=== PATIENT | female | born 1995 | race African-American/Black ===

== ENCOUNTER 2017-10-23 18:35 | Emergency (ER) | payer OTHER, BC ==
[~2017-10-23] VITALS: Ht 167.6 cm; Wt 63.6 kg
[~2017-10-23 18:35] MED LIST: MIRALAX255 GM PO; MOTRIN600 MG PO; NAPROXEN500 MG PO; VALIUM2 MG PO
[2017-10-23 19:48] LABS: BASOPHIL (%) 0.7 % (0-1); EOSINOPHIL (%) 14.9 % (0-5); EOSINOPHIL COUNT 0.6 K/uL (0-0.3); HEMATOCRIT 36.3 % (36.0-46.0); HEMOGLOBIN 11.7 G/DL (11.9-15.5); LYMPHOCYTE (%) 38.7 % (15-42); LYMPHOCYTE COUNT 1.6 K/uL (1.0-2.8); MCH 27.9 PG (29.0-34.0); MCHC 32.2 G/DL (30.0-36.0); MCV 86.6 FL (83-99); MONOCYTE COUNT 0.4 K/uL (0-0.8); NEUTROPHIL (%) 36.7 % (45-76); NEUTROPHIL COUNT 1.6 K/uL (1.8-6.4); PLATELET COUNT 252 K/uL (156-360); RBC DIS.WIDTH-CV 13.4 % (11.8-14.6); RBC DIS.WIDTH-SD 42.8 % (39-53); RED BLOOD COUNT 4.19 M/uL (3.80-5.20); WHITE BLOOD COUNT 4.2 K/uL (4.1-10.2)
[2017-10-23 19:56] LABS: ALBUMIN 3.9 g/dL (3.2-4.8); CHLORIDE 107 mEq/L (99-109); POTASSIUM 4.4 mEq/L (3.7-5.4); SODIUM 137 mEq/L (136-147)
[2017-10-23 19:58] LABS: GLUCOSE 82 mg/dL (70-99)
[2017-10-23 20:00] LABS: TOTAL BILIRUBIN 0.4 mg/dL (0.0-1.0)
[2017-10-23 20:01] LABS: SERUM ETHYL ALCOHOL < 10 mg/dL
[2017-10-23 20:02] LABS: ALKALINE PHOSPHATASE 66 IU/L (3-129); GFR ESTIMATE (CALCULATED) > 59 mL/min/
[2017-10-23 20:03] LABS: AST (GOT) 19 IU/L (2-34); UREA NITROGEN (BUN) 12 mg/dL (9-23)
[2017-10-23 20:05] LABS: ALT (GPT) 13 IU/L (3-49)
[2017-10-23 20:10] LABS: QUANTITATIVE HCG < 4.0 MIU/ML
[2017-10-23] MEDS ORDERED: FLEXERIL10 MG PO (21:42)
[2017-10-23] MEDS ORDERED: MOTRIN600 MG PO (21:42)
[2017-10-23 22:10] VITALS: BP 114/88
== END 2017-10-23 22:52 | disposition home or self-care (01) ==
LOC: EME 18:35
PROVIDERS: Emergency Medicine
DX: S30.0XXA Contusion of lower back and pelvis, initial encounter (principal); S06.0X0A Concussion without loss of consciousness, initial encounter; V49.40XA Driver injured in collision with unspecified motor vehicles in traffic accident, initial encounter; Y92.410 Unspecified street and highway as the place of occurrence of the external cause; Z88.8 Allergy status to other drugs, medicaments and biological substances
CPT/HCPCS: 70450; 72125; 72132; 74177; 80053; 84702; 85025; 99281; 99284; G0480; J3010; J7030

== ENCOUNTER 2018-05-02 16:41 | Emergency (ER) | payer OTHER ==
[~2018-05-02] VITALS: Ht 162.6 cm; Wt 71.8 kg
[~2018-05-02 16:41] MED LIST changes: +FLEXERIL10 MG PO
[2018-05-02 19:08] LABS: HEMATOCRIT 30.7 % (36.0-46.0); HEMOGLOBIN 10.4 G/DL (11.9-15.5); MCH 29.2 PG (29.0-34.0); MCHC 33.9 G/DL (30.0-36.0); MCV 86.2 FL (83-99); PLATELET COUNT 170 K/uL (156-360); RBC DIS.WIDTH-CV 13.9 % (11.8-14.6); RBC DIS.WIDTH-SD 43.4 % (39-53); RED BLOOD COUNT 3.56 M/uL (3.80-5.20); WHITE BLOOD COUNT 6.8 K/uL (4.1-10.2)
[2018-05-02 19:20] LABS: BILIRUBIN NEGATIVE; BLOOD MODERATE; COLOR YELLOW ((YELLOW)); GLUCOSE (STRIP) NEGATIVE; KETONES NEGATIVE; LEUKOCYTES TRACE; NITRITE NEGATIVE; PROTEIN (STRIP) NEGATIVE; SPECIFIC GRAVITY 1.012 (1.000-1.030); UROBILINOGEN 0.2 MG/DL (0.2-1.0)
[2018-05-02 19:21] LABS: APPEARANCE SL.HAZY ((CLEAR))
[2018-05-02 19:35] LABS: QUANTITATIVE HCG 9355.2 MIU/ML
[2018-05-02 19:36] LABS: BACTERIA RARE /HPF; EPITHELIAL CELLS 1+ /HPF; MUCUS TRACE /LPF; RED BLOOD CELLS TNTC /HPF (0-5); UCUL ADDED? YES; WHITE BLOOD CELLS 0-5 /HPF (0-5)
[2018-05-02 19:43] LABS: ALBUMIN 3.4 g/dL (3.2-4.8); CHLORIDE 106 mEq/L (99-109); POTASSIUM 3.9 mEq/L (3.7-5.4); SODIUM 136 mEq/L (136-147)
[2018-05-02 19:46] LABS: GLUCOSE 84 mg/dL (70-99); TOTAL PROTEIN 6.9 g/dL (6.4-8.3)
[2018-05-02 19:48] LABS: TOTAL BILIRUBIN 0.1 mg/dL (0.0-1.0)
[2018-05-02 19:49] LABS: ALKALINE PHOSPHATASE 57 IU/L (3-129); CREATININE 0.7 mg/dL (0.6-1.3); GFR ESTIMATE (CALCULATED) > 59 mL/min/
[2018-05-02 19:50] LABS: UREA NITROGEN (BUN) 8 mg/dL (9-23)
[2018-05-02 19:51] LABS: AST (GOT) 15 IU/L (2-34)
[2018-05-02 19:52] LABS: ALT (GPT) 10 IU/L (3-49)
[2018-05-02 21:49] VITALS: BP 104/62
== END 2018-05-02 21:51 | disposition home or self-care (01) ==
LOC: EME 16:41
DX: O20.0 Threatened abortion (principal); O98.812 Other maternal infectious and parasitic diseases complicating pregnancy, second trimester; B37.3 Candidiasis of vulva and vagina; Z3A.18 18 weeks gestation of pregnancy
CPT/HCPCS: 76805; 80053; 81003; 84702; 85027; 86900; 86901; 87086; 99281; 99284